=== PATIENT | male | born 1985 | race Caucasian/White ===

== ENCOUNTER 2023-11-14 10:52 | Emergency (ER) | payer MEDICAID ==
[~2023-11-14] VITALS: Ht 180.3 cm; Wt 81.6 kg
[2023-11-14 11:00] VITALS: BP 129/84; PULSE 100; RESP 16; TEMP 98; O2SAT 97
[2023-11-14] MEDS ORDERED: HYDROcodone/APAP 5/325 MG 1 TAB TAB PO ONE (11:35)
[2023-11-14] MEDS ORDERED: ACET-8905 PO (11:37)
[2023-11-14] MEDS ORDERED: NAPR-54 PO (11:37)
[2023-11-14] MEDS ORDERED: AMOX-999 PO (11:39)
== END 2023-11-14 11:51 | disposition home or self-care (01) ==
LOC: MED 10:52 → EDBD 10:52 → MED 11:51
DX: K02.9 Dental caries, unspecified (principal); Z79.899 Other long term (current) drug therapy
CPT/HCPCS: 99283